=== PATIENT | female | born 1945 | race Caucasian/White ===

== ENCOUNTER 2019-08-22 11:28 | Inpatient (IN) ==
[2019-08-22] MEDS ORDERED: ZOFRAN IV PRN (13:06)
[2019-08-22] MEDS ORDERED: DEMEROL IV PRN (13:06)
[2019-08-22] MEDS ORDERED: NS 1,000 ML IV SCH (13:15)
[2019-08-22 14:22] LABS: BASO# 0.03 X1000 (0.0-0.2); BASO% 0.3 % (0.0-0.8); EOS# 0.03 X1000 (0.0-0.7); EOS% 0.3 % (0.0-10.0); HEMATOCRIT 40.9 % (37.0-47.0); HEMOGLOBIN 13.5 g/dL (12.0-16.0); IMM GRAN# 0.02 X1000 (0.0-0.04); IMM GRAN% 0.2 % (0.0-0.5); LYMPH# 1.42 X1000 (1.2-3.4); LYMPH% 11.9 % (20.5-51.1); MCV 93.8 FL (81-99); MONO# 1.16 X1000 (0.11-0.59); MONO% 9.8 % (1.7-9.3); MPV 11.4 FL (7.4-10.4); NEUT# 9.23 X1000 (1.4-6.5); NEUT% 77.5 % (42.2-75.2); PLT 218 X1000 (130-400); RBC 4.36 XMIL (4.2-5.4); RDW 14.8 % (11.5-14.5); WBC 11.89 X1000 (4.8-10.8)
[2019-08-22 14:40] LABS: AGAP 15; ALB/GLOB RATIO 0.9; ALBUMIN 3.6 g/dL (3.5-5.0); ALKALINE PHOSPHATASE 85 U/L (32-104); BUN 10 mg/dL (8-22); CALCIUM 9.1 mg/dL (8.8-10.2); CHLORIDE 102 mmol/L (98-107); COSMO 277; CREATININE 0.9 mg/dL (0.5-0.9); ESTIMATED GFR > 60; GLUCOSE 114 mg/dL (70-104); GOT 24 U/L (10-30); GPT 22 U/L (10-36); POTASSIUM 4.1 mmol/L (3.5-5.1); SODIUM 139 mmol/L (136-145); TCO2 22 mmol/L (25-35); TOTAL BILIRUBIN 1.29 mg/dL (0.20-1.00); TOTAL PROTEIN 7.4 g/dL (6.3-8.3)
[2019-08-22 14:46] LABS: INR 1.14; PROTIME 14.7 Seconds (11.0-16.0)
[2019-08-22] MEDS ORDERED: APRESOLINE IV PRN (15:17)
[2019-08-22 15:53] LABS: AMYLASE 592 U/L (20-200); LIPASE 984 U/L (13-60)
--- NOTE | 2019-08-22 17:35 | Diag Imaging Result Doc PS360 ---
EXAM: CT ABDOMEN W/O CONTRAST - 08/22/2019 HISTORY: Abdominal pain TECHNIQUE: CT abdomen without contrast. No contrast administered per request the referring provider. COMPARISON: None. FINDINGS: There is some limitation of detail due to the lack of administered contrast. The visualized lung bases appear clear except for mild dependent atelectasis. There are postsurgical changes of hiatal hernia repair. There are calcified granulomas in the spleen from old granulomatous disease. There are no other substantial abnormalities of the liver, spleen, or adrenal glands identified. The gallbladder surgically absent. There are peripancreatic inflammatory changes which are most prominent around the tail of pancreas. These are suspicious for acute pancreatitis. There is no discrete pancreatic necrosis identified. There is no evidence of pseudocyst. There is no evidence of bowel obstruction. There is no free air, substantial free fluid, or abscess identified. There is no evidence of renal stone or hydronephrosis. There are nonspecific small retroperitoneal lymph nodes. There are atherosclerotic calcifications noted. There are lumbar spine degenerative changes noted. Please note that the pelvis is not imaged or evaluated. IMPRESSION: Peripancreatic inflammation which is suspicious for acute pancreatitis. No discrete pancreatic necrosis. No evidence of pseudocyst. This exam was performed using automated exposure control, adjustment of mA or kV according to patient size, and/or use of iterative reconstruction technique. Electronically signed by Romel Hughes 08/22/2019 5:33 PM
--- NOTE | 2019-08-22 19:12 | HISTORY AND PHYSICAL ---
CHIEF COMPLAINT: Abdominal pain, nausea, vomiting. HISTORY OF PRESENT ILLNESS: This is a 74-year-old female with a history of hypertension, atrial fibrillation, on chronic anticoagulation, and anxiety. She presents as a direct admit from Dr. Wright's office being evaluated and having labs with amylase returning back that was greater than 600. The patient states night before last she started having some abdominal pain. She hurt through the night, all through the day yesterday. She described it as "terrible abdominal pain. It felt like somebody was stabbing me, and I was nauseated, and I vomited some." At present, she has no further nausea or vomiting. She states her pain is much better. She rates it as a 2 to 3/10. She is tender to palpation in the upper quadrants and epigastric area. She denied any chest pain, palpitations, any shortness of breath, any fevers or chills, any black or bloody vomitus or stools. PAST MEDICAL HISTORY: 1. Hypertension. 2. Atrial fibrillation on chronic anticoagulation. PAST SURGICAL HISTORY: Cholecystectomy. SOCIAL HISTORY: She denies alcohol, tobacco, or illicit drug use. ALLERGIES: Codeine, which causes an unknown reaction. HOME MEDICATIONS: Eliquis, Multaq, Lasix, Xanax, and other medications will be identified by the nursing staff, and once verified we will review and restart as appropriate. REVIEW OF SYSTEMS: Discussed with patient with pertinent positives stated in HPI. She denies any syncope, dizziness, any chest pain or palpitations, any diarrhea, constipation, black or bloody vomitus or stools, any fevers, chills, any hematuria, dysuria, frequency, urgency. PHYSICAL EXAMINATION: GENERAL: This is a 74-year-old female who is lying on the stretcher in the emergency room in no distress. VITAL SIGNS: Blood pressure is 172/70 with a heart rate of 80, respirations 18, temperature is 98.6 degrees oral with room air saturations 98%. EYES: Pupils equal, round, react to light. EOMs are intact. Sclerae anicteric. HEENT: Head is normocephalic, atraumatic. Mucous membranes are moist. NECK: Supple with trachea midline. CARDIOVASCULAR: Regular rate and rhythm. S1 and S2 are appreciated. Calves are nontender bilateral. She does have some bilateral lower extremity edema. PULMONARY: Breath sounds are clear with no increased work of breathing noted. Chest rises and falls symmetric with respiration. Chest wall is nontender to palpation. GASTROINTESTINAL: Abdomen is soft. Bilateral upper quadrant epigastric tenderness with bowel sounds. She is nondistended with bowel sounds in all 4 quadrants. GENITOURINARY: No CVA or suprapubic tenderness. NEUROLOGIC: She is alert and oriented. SKIN: Warm and dry. ASSESSMENT AND PLAN: 1. pancreatitis. n.p.o. recheck a CBC, CMP, Magnesium, PT/INR, amylase and lipase. CT of the abdomen and pelvis with and without contrast. 2. Abdominal pain. Demerol 12.5 IV q.4 hours p.r.n. 3. Nausea and vomiting. Zofran q.4 hours p.r.n. with IV hydration. 4. History of hypertension. identify her medications and continue as appropriate. 5. Atrial fibrillation on chronic anticoagulation. As the patient is n.p.o. at present, will give Lovenox 1 mg/kg, and once she is able to take oral, she will be switched back over to her home dose of Eliquis. 6. Anxiety. Aware. Plan was discussed with Dr. Rhodes. Further treatments pending hospital course. Dictated by HALEY Pitts for Carl Lawrence MD cc: HALEY Pitts MD Katherine Takundwa, MD [facility]
[2019-08-22] MEDS: LOVENOX SUBQ SCH (22:45)
[2019-08-23 03:34] LABS: URINE SOURCE CLEAN CATCH
[2019-08-23 03:36] LABS: BILIRUBIN URINE NEGATIVE (NEGATIVE); BLOOD URINE NEGATIVE (NEGATIVE); COLOR YELLOW; GLUCOSE URINE NEGATIVE (NEGATIVE); KETONE URINE 20 mg/dL (NEGATIVE); LEUKOCYTES URINE TRACE (NEGATIVE); NITRITE URINE NEGATIVE (NEGATIVE); PROTEIN URINE TRACE mg/dL (NEGATIVE); SP GRAVITY URINE 1.014; TURBIDITY URINE CLEAR (CLEAR); UROBILINOGEN URINE NORMAL (NORMAL)
[2019-08-23 04:05] LABS: UR EPITHELIAL CELLS <10 /HPF (<10); URINE BACTERIA NEGATIVE /HPF; URINE RBC <10 /HPF (<10)
[2019-08-23 04:31] LABS: URINE CASTS NONE SEEN; URINE CRYSTALS NONE SEEN; URINE SMALL ROUND CELLS NONE SEEN; URINE YEAST NONE SEEN
[2019-08-23 07:25] LABS: BASO# 0.02 X1000 (0.0-0.2); BASO% 0.2 % (0.0-0.8); EOS# 0.13 X1000 (0.0-0.7); EOS% 1.4 % (0.0-10.0); HEMATOCRIT 37.7 % (37.0-47.0); HEMOGLOBIN 12.2 g/dL (12.0-16.0); LYMPH# 1.09 X1000 (1.2-3.4); LYMPH% 11.3 % (20.5-51.1); MCH 30.1 PG (27-31); MCHC 32.4 g/dL (33-37); MCV 93.1 FL (81-99); MONO# 0.81 X1000 (0.11-0.59); MONO% 8.4 % (1.7-9.3); NEUT# 7.57 X1000 (1.4-6.5); NEUT% 78.7 % (42.2-75.2); PLT 218 X1000 (130-400); RBC 4.05 XMIL (4.2-5.4); RDW 14.8 % (11.5-14.5); WBC 9.62 X1000 (4.8-10.8)
[2019-08-23 08:29] LABS: AGAP 17; ALB/GLOB RATIO 0.9; ALKALINE PHOSPHATASE 83 U/L (32-104); AMYLASE 270 U/L (20-200); BUN 8 mg/dL (8-22); CALCIUM 8.7 mg/dL (8.8-10.2); CHLORIDE 102 mmol/L (98-107); COSMO 270; CREATININE 0.9 mg/dL (0.5-0.9); ESTIMATED GFR > 60; GLUCOSE 95 mg/dL (70-104); GOT 33 U/L (10-30); GPT 22 U/L (10-36); POTASSIUM 4.7 mmol/L (3.5-5.1); SODIUM 136 mmol/L (136-145); TCO2 17 mmol/L (25-35); TOTAL BILIRUBIN 1.16 mg/dL (0.20-1.00); TOTAL PROTEIN 6.5 g/dL (6.3-8.3)
[2019-08-23] MEDS: LOVENOX SUBQ SCH ×2 (08:55→20:18)
[2019-08-23] MEDS: NS 1,000 ML IV SCH ×3 (09:51→23:29)
[2019-08-23] MEDS ORDERED: PNEUMOVAX 23 IM ONE (16:45)
[2019-08-23] MEDS ORDERED: ATIVAN IV PRN (19:36)
[2019-08-23] MEDS ORDERED: SODIUM CHLORIDE 0.9% INJ SCH (19:45)
--- NOTE | 2019-08-23 20:17 | PROGRESS NOTE ---
DATE: 08/23/2019 SUBJECTIVE: The patient complains of epigastric pain. She denies any nausea. OBJECTIVE: Vital Signs: Temperature 97.6 degrees, blood pressure 153/60, heart rate 82, respirations 16, O2 saturation is 97% on room air. General: This is a chronically ill-appearing, elderly female, lying in bed in no acute distress. Heart: S1, S2 normal. Regular rate and rhythm. Lungs: Clear to auscultation bilaterally. Abdomen: Positive bowel sounds. Soft. Positive for epigastric tenderness. Neurologic: The patient is alert and oriented x4. LABORATORY: Sodium 136, potassium 4.7, chloride 102, CO2 of 17, BUN 8, creatinine 0.9, glucose 95. Lipase 467, amylase 270. ASSESSMENT AND PLAN: 1. Acute pancreatitis. Slowly improving. We will keep the patient NPO for another 24 hours. Hopefully, we can try and start clear liquids tomorrow. The patient can have ice chips and sips of water today. 2. Chronic atrial fibrillation. The patient is rate controlled. The patient is currently on Lovenox until we can restart her Eliquis. 3. Anxiety disorder. Ativan p.r.n. is available for the patient until we can restart her Xanax. 4. Gastrointestinal prophylaxis. We will start the patient on IV Protonix. cc: Ginger Stoll MD
[2019-08-24] MEDS: PROTONIX IV SCH (06:11)
[2019-08-24 07:56] LABS: HEMATOCRIT 36.2 % (37.0-47.0); HEMOGLOBIN 11.7 g/dL (12.0-16.0); MCH 30.2 PG (27-31); MCHC 32.3 g/dL (33-37); MCV 93.3 FL (81-99); MPV 11.9 FL (7.4-10.4); RBC 3.88 XMIL (4.2-5.4); RDW 14.5 % (11.5-14.5); WBC 7.45 X1000 (4.8-10.8)
[2019-08-24 08:02] LABS: AGAP 15; ALB/GLOB RATIO 1.2; ALKALINE PHOSPHATASE 74 U/L (32-104); BUN 10 mg/dL (8-22); CALCIUM 8.3 mg/dL (8.8-10.2); CHLORIDE 106 mmol/L (98-107); COSMO 280; CREATININE 0.8 mg/dL (0.5-0.9); ESTIMATED GFR > 60; GLUCOSE 92 mg/dL (70-104); GOT 16 U/L (10-30); GPT 16 U/L (10-36); LIPASE 152 U/L (13-60); POTASSIUM 4.1 mmol/L (3.5-5.1); SODIUM 141 mmol/L (136-145); TCO2 20 mmol/L (25-35); TOTAL BILIRUBIN 1.02 mg/dL (0.20-1.00); TOTAL PROTEIN 5.5 g/dL (6.3-8.3)
[2019-08-24 08:04] LABS: CHOLESTEROL 102 mg/dL (0-200); HDL 45 mg/dL (45-65); LDL 42 mg/dL; TRIGLYCERIDES 74 mg/dL (35-135); VLDL 15 mg/dL
[2019-08-24] MEDS: LOVENOX SUBQ SCH (08:28)
[2019-08-24] MEDS: NS 1,000 ML IV SCH (12:42)
[2019-08-24] MEDS: LIDODERM TOP SCH (13:13)
--- NOTE | 2019-08-24 15:52 | PROGRESS NOTE ---
DATE: 08/24/2019 SUBJECTIVE: The patient is resting comfortably in bed. She states that she was able to tolerate a clear liquid diet. She does complain of epigastric pain and back pain that is chronic. OBJECTIVE: Vital Signs: Temperature 98.5 degrees, blood pressure 166/65, heart rate 78, respirations 15, O2 saturation 98% on room air. General: This is an elderly female lying in bed in no acute distress. Heart: S1, S2 normal. Regular rate and rhythm. Lungs: Equal air entry bilaterally. No crackles. No rales. Abdomen: Positive bowel sounds. Soft, nontender, nondistended. Extremities: No edema. No cyanosis. Neurologic: The patient is alert and oriented x4. LABS: White blood cell count 7.4, hemoglobin 11, hematocrit 36, platelets 214,000. Sodium 141, potassium 4.1, chloride 106, CO2 20, BUN 10, creatinine 0.8, glucose 92, total bilirubin 1, AST 16, ALT 16, alkaline phosphatase 74. ASSESSMENT AND PLAN: 1. Acute pancreatitis. Slowly improving. The lipase is slowly normalizing. Continue on a clear liquid diet. Will consider advancing to full liquids tomorrow. 2. Chronic atrial fibrillation. We will restart the patient's anticoagulation. We will discontinue the full-dose Lovenox at this time. We will continue on Multaq. 3. Anxiety disorder. Continue on Xanax as needed. 4. Chronic back pain. We will start the patient on a lidocaine patch. Continue on Cymbalta. 5. Hypertension. Continue on Cozaar. 6. Will consult physical therapy. cc: Ginger Stoll MD
[2019-08-24] MEDS: ANTIVERT PO SCH (20:41)
[2019-08-24] MEDS: DESYREL PO SCH (20:42)
[2019-08-24] MEDS: MULTAQ PO SCH (20:42)
[2019-08-24] MEDS: ELIQUIS PO SCH (20:42)
[2019-08-24] MEDS: XANAX PO SCH (20:42)
[2019-08-24] MEDS: SINGULAIR PO SCH (22:09)
[2019-08-25] MEDS: NS 1,000 ML IV SCH ×2 (02:15→02:16)
[2019-08-25] MEDS: PROTONIX IV SCH (06:13)
[2019-08-25] MEDS ORDERED: NS 1,000 ML IV SCH (07:20)
[2019-08-25 08:22] LABS: AGAP 9; ALB/GLOB RATIO 0.9; ALBUMIN 2.9 g/dL (3.5-5.0); ALKALINE PHOSPHATASE 76 U/L (32-104); BUN 7 mg/dL (8-22); CALCIUM 8.6 mg/dL (8.8-10.2); CHLORIDE 108 mmol/L (98-107); COSMO 281; CREATININE 0.8 mg/dL (0.5-0.9); ESTIMATED GFR > 60; GLUCOSE 104 mg/dL (70-104); GOT 15 U/L (10-30); GPT 14 U/L (10-36); LIPASE 105 U/L (13-60); POTASSIUM 3.8 mmol/L (3.5-5.1); SODIUM 142 mmol/L (136-145); TCO2 25 mmol/L (25-35); TOTAL BILIRUBIN 0.64 mg/dL (0.20-1.00); TOTAL PROTEIN 6.3 g/dL (6.3-8.3)
[2019-08-25] MEDS: CYMBALTA PO SCH (08:32)
[2019-08-25] MEDS: LIDODERM TOP SCH (08:32)
[2019-08-25] MEDS: ELIQUIS PO SCH ×2 (08:32→20:12)
[2019-08-25] MEDS: MULTAQ PO SCH ×2 (08:32→20:12)
[2019-08-25] MEDS: COZAAR PO SCH (08:33)
[2019-08-25] MEDS: COREG PO SCH ×2 (08:40→20:12)
[2019-08-25] MEDS: XANAX PO SCH ×2 (08:40→20:12)
--- NOTE | 2019-08-25 18:27 | PROGRESS NOTE ---
DATE: 08/25/2019 SUBJECTIVE: The patient states that she feels a lot better. She is able to tolerate a full liquid breakfast. OBJECTIVE: Vital Signs: Temperature 98.6 degrees, blood pressure 149/87, heart rate 65, respirations 15, O2 saturations 100% on room air. General: This is an elderly female lying in bed in no acute distress. Heart: S1, S2 normal. Regular rate and rhythm. Lungs: Clear to auscultation bilaterally. No wheezing. No rales. No rhonchi. Abdomen: Positive bowel sounds. Soft. Mild tenderness in the epigastric region. Extremities: No edema. No cyanosis. No calf tenderness. Neurologic: The patient is alert and oriented x3. LABORATORY DATA: Sodium 142, potassium 3.8, chloride 108, CO2 of 25, BUN 7, creatinine 0.8, glucose 104, calcium 8.6, AST 15, ALT 14, alkaline phosphatase 76, lipase 105. ASSESSMENT AND PLAN: 1. Acute pancreatitis. Slowly improving. The patient's lipase appears to be improving daily. The patient is tolerating her diet without any difficulty. We will plan to advance the patient to a GI soft diet. 2. Chronic atrial fibrillation. The patient is rate controlled. Continue on Multaq and Eliquis. 3. Anxiety disorder. Continue on Xanax. 4. Chronic back pain. The patient is on a lidocaine patch. 5. Hypertension. Continue on Cozaar and Coreg. 6. Hyperlipidemia. Continue on lovastatin. 7. Continue with physical therapy. 8. Disposition. If the patient continues to improve, she should be able to be discharged home possibly tomorrow. cc: MD KAI Wadsworth
[2019-08-25] MEDS: ANTIVERT PO SCH (20:12)
[2019-08-25] MEDS: DESYREL PO SCH (20:12)
[2019-08-25] MEDS: MEVACOR PO SCH (20:12)
[2019-08-25] MEDS: SINGULAIR PO SCH (20:12)
[2019-08-26] MEDS: PROTONIX IV SCH ×2 (05:50→07:29)
[2019-08-26 07:23] LABS: AGAP 10; ALB/GLOB RATIO 0.8; ALBUMIN 2.9 g/dL (3.5-5.0); ALKALINE PHOSPHATASE 69 U/L (32-104); BUN 6 mg/dL (8-22); CALCIUM 8.7 mg/dL (8.8-10.2); CHLORIDE 109 mmol/L (98-107); COSMO 282; CREATININE 0.8 mg/dL (0.5-0.9); ESTIMATED GFR > 60; GLUCOSE 119 mg/dL (70-104); GOT 18 U/L (10-30); GPT 13 U/L (10-36); LIPASE 78 U/L (13-60); POTASSIUM 3.9 mmol/L (3.5-5.1); SODIUM 142 mmol/L (136-145); TCO2 23 mmol/L (25-35); TOTAL BILIRUBIN 0.47 mg/dL (0.20-1.00); TOTAL PROTEIN 6.5 g/dL (6.3-8.3)
[2019-08-26] MEDS: MULTAQ PO SCH ×2 (08:35→20:30)
[2019-08-26] MEDS: COZAAR PO SCH (08:35)
[2019-08-26] MEDS: ELIQUIS PO SCH ×2 (08:35→20:30)
[2019-08-26] MEDS: XANAX PO SCH ×2 (08:35→20:30)
[2019-08-26] MEDS: CYMBALTA PO SCH (08:35)
[2019-08-26] MEDS: COREG PO SCH ×2 (08:36→20:31)
[2019-08-26] MEDS: LIDODERM TOP SCH (12:08)
--- NOTE | 2019-08-26 14:24 | PROGRESS NOTE ---
DATE: 08/26/2019 SUBJECTIVE: The patient is resting comfortably in bed. No acute events noted overnight. She states that her abdomen feels a lot better today, and she was able to tolerate a solid diet for dinner yesterday. OBJECTIVE: Vital Signs: Temperature 97.7 degrees, blood pressure 115/47, heart rate 64, respirations 20, O2 saturation 98% on room air. General: This is an elderly female, lying in bed in no acute distress. Heart: S1, S2 normal. Regular rate and rhythm. Lungs: Clear to auscultation bilaterally. No wheezing. No rales. No rhonchi. Abdomen: Positive bowel sounds. Soft. Mild epigastric tenderness. Extremities: No edema. No cyanosis. No calf tenderness. Neurologic: The patient is alert and oriented x4. LABORATORY DATA: Sodium 142, potassium 3.9, chloride 109, CO2 of 23, BUN 6, creatinine 0.8, glucose 119. Lipase 78. ASSESSMENT AND PLAN: 1. Acute pancreatitis. Improved. The patient appears to be tolerating a solid diet. Also, her lipase is almost normal. 2. Chronic atrial fibrillation. The patient is rate controlled. Continue on Multaq and Eliquis. 3. Anxiety disorder. Continue on Xanax. 4. Chronic back pain. Continue on the lidocaine patch. 5. Obesity. The patient has been counseled about weight loss and proper diet. 6. Hypertension. Continue on Cozaar and Coreg. 7. Hyperlipidemia. Continue on lovastatin. 8. Continue with physical therapy. 9. Disposition. Will observe the patient one more day in the hospital. If she does well with eating today, she can be discharged home tomorrow. cc: Ginger Stoll MD [facility]
[2019-08-26] MEDS: DESYREL PO SCH (20:30)
[2019-08-26] MEDS: SINGULAIR PO SCH (20:30)
[2019-08-26] MEDS: MEVACOR PO SCH (20:30)
[2019-08-26] MEDS: ANTIVERT PO SCH (20:31)
[2019-08-27] MEDS: PROTONIX IV SCH (06:44)
[2019-08-27 07:32] LABS: AGAP 12; BUN 10 mg/dL (8-22); CALCIUM 8.6 mg/dL (8.8-10.2); CHLORIDE 111 mmol/L (98-107); COSMO 282; CREATININE 0.9 mg/dL (0.5-0.9); ESTIMATED GFR > 60; GLUCOSE 103 mg/dL (70-104); LIPASE 86 U/L (13-60); POTASSIUM 3.6 mmol/L (3.5-5.1); SODIUM 142 mmol/L (136-145); TCO2 19 mmol/L (25-35)
[2019-08-27] MEDS ORDERED: ULTRAM PO PRN (08:53)
[2019-08-27] MEDS: CYMBALTA PO SCH (09:17)
[2019-08-27] MEDS: MULTAQ PO SCH (09:17)
[2019-08-27] MEDS: COREG PO SCH (09:18)
[2019-08-27] MEDS: COZAAR PO SCH (09:18)
[2019-08-27] MEDS: XANAX PO SCH (09:18)
[2019-08-27] MEDS: LIDODERM TOP SCH (09:18)
[2019-08-27] MEDS: ELIQUIS PO SCH (09:18)
[2019-08-27 12:06] VITALS: BP 148/49
--- NOTE | 2019-08-30 15:36 | DISCHARGE SUMMARY ---
ADMISSION DATE: 08/22/2019 DISCHARGE DATE: 08/27/2019 PERTINENT STUDIES: Abdominal CT showing rustam pancreatic inflammation suspicious for acute pancreatitis. No necrosis. No pseudocyst. Gallbladder surgically absent. Initial bilirubin 1.29, trended down to 0.47. AST, ALT, and alkaline phosphatase within normal limits. Lipase 984. Last lipase 78. Urinalysis, trace leukocytes, 10 to 20 WBCs, otherwise unremarkable. Initial WBC 11.89. Last WBC 7.45. DISCHARGE DIAGNOSES: 1. Acute pancreatitis. 2. Chronic atrial fibrillation. 3. Chronic pain. 4. Obesity. 5. Hypertension. 6. Hyperlipidemia. 7. Anxiety. HOSPITAL COURSE: The patient presented as direct admit from Dr. Wright's office after being evaluated for abdominal pain with a markedly elevated amylase found. The patient described nausea, vomiting, and "terrible abdominal pain". At the time of admission, nausea and vomiting were improved, but still had some pain. CT confirmed acute pancreatitis and lipase markedly elevated at over 900, but no other pathology was seen. No sign of infection. Gallbladder was surgically absent. No liver pathology. Bilirubin was only minimally elevated and trending down rapidly. Other LFTs were within normal limits. She was treated conservatively with fluids and bowel rest and improved rapidly. The cause of her pancreatitis remained uncertain. None of her medications were identified as being likely to cause pancreatitis. She has already had her gallbladder out and did not have an obstructive pattern on her labs to suggest gallstone or to suggest obstruction. The patient denied heavy alcohol use, possibly autoimmune etiology. With regard to the etiology, patient's symptoms resolved. Her lipase essentially normalized and she was tolerating diet at the time of discharge. DISCHARGE VITALS: Temperature 98.3 degrees, pulse 64, respirations 18, blood pressure 148/49, O2 saturation 98% on room air. DISCHARGE DIET: Low fat, low salt. DISCHARGE MEDICATIONS: Meclizine 25 mg p.o. at bedtime if needed, trazodone 50 mg p.o. at bedtime as needed, Singulair 10 mg p.o. at bedtime, losartan 50 mg p.o. daily, Cymbalta 60 mg p.o. daily, Eliquis 5 mg p.o. b.i.d., Lasix 40 mg p.o. b.i.d., lovastatin 40 mg p.o. daily, Multaq 400 mg p.o. b.i.d., omeprazole 40 mg p.o. b.i.d., potassium 8 mEq p.o. daily, Xanax 0.25 mg p.o. b.i.d. as needed, Ultram 50 mg p.o. q. 8 hours as needed. FOLLOWUP AND PLAN: Patient discharging home to follow up with PCP. Greater than 30 minutes spent arranging discharge and counseling patient.
== END 2019-08-27 14:08 | disposition home or self-care (01) | DRG 439 ==
LOC: DIRADM 11:28 → SUATTDRO 11:28 → EDIPHOLD 12:28 → 4N 16:55
PROVIDERS: ATTEND Internal Medicine